=== PATIENT | male | born 1990 | race Caucasian/White ===

== ENCOUNTER 2018-06-03 11:17 | Emergency (ER) | payer BC, OTHER ==
[~2018-06-03] VITALS: Ht 175.3 cm; Wt 70.0 kg
[2018-06-03] MEDS ORDERED: LIDOCAINE-MPF 2% ,5ML ONE (12:28)
[2018-06-03] MEDS ORDERED: DIPH,PERTUSS(ACELL),TET VAC/PF 0.5 ML IM-VACC ONE ×2 (12:28→12:30)
[2018-06-03] MEDS ORDERED: LIDOCAINE 2%, 20ML SQ ONE (12:30)
[2018-06-03] MEDS ORDERED: OMNIPAQUE 350 MG/ML, 100ML BOTTLE ONE (13:46)
[2018-06-03 15:09] VITALS: BP 128/64
== END 2018-06-03 15:24 | disposition home or self-care (01) ==
LOC: ED 13:50
DX: S06.0X0A Concussion without loss of consciousness, initial encounter (principal); S01.511A Laceration without foreign body of lip, initial encounter; S10.91XA Abrasion of unspecified part of neck, initial encounter; Y04.0XXA Assault by unarmed brawl or fight, initial encounter; Y93.89 Activity, other specified; Y92.89 Other specified places as the place of occurrence of the external cause; Y99.8 Other external cause status
CPT/HCPCS: 40650; 70450; 70486; 70491; 90471; 90715; 99285; J3490; Q9967